=== PATIENT | female | born 1930 | race Caucasian/White ===

== ENCOUNTER 2017-03-11 22:38 | Emergency (ER) | payer MEDICARE, OTHER ==
[2017-03-11] MEDS ORDERED: ACETAMINOPHEN 325 MG TABLET PO ONE (23:05)
[2017-03-11] MEDS ORDERED: BACITRACIN 1 APP/PKT PKT TOPICAL ONE (23:05)
[2017-03-11 23:14] LABS: BASOPHILS 0.2 % (0.0-2.0); EOSINOPHILS 2.5 % (0.0-6.0); EOSINOPHILS# 0.4 X 10^3uL (0.0-0.4); HEMATOCRIT 44.5 % (36.0-48.0); HEMOGLOBIN 14.8 g/dL (12.0-16.0); LYMPHOCYTES 24.4 % (20.0-40.0); MEAN CELL VOLUME 97.6 fL (80.0-100.0); MEAN CORPUS. HGB CONCENTRATION 33.3 g/dL (32.0-36.0); MEAN CORPUSCULAR HEMOGLOBIN 32.5 pg (29.0-35.0); MEAN PLATELET VOLUME 8.3 fL (7.4-10.4); MONOCYTES 6.4 % (2.0-10.0); MONOCYTES# 1.1 X 10^3uL (0.2-1.0); NEUTROPHILS 66.5 % (54.0-75.0); NEUTROPHILS# 11.7 X 10^3uL (2.6-6.7); PLATELET COUNT 301 X 10^3uL (130-440); RED BLOOD COUNT 4.56 X 10^6uL (4.20-6.10); RED CELL DISTRIBUTION WIDTH 12.7 % (11.5-14.5); WHITE BLOOD COUNT 17.5 X 10^3uL (3.9-10.7)
[2017-03-11 23:17] LABS: A/G RATIO 1.3; ALBUMIN 4.7 g/dL (3.5-5.0); ALKALINE PHOSPHATASE 87 U/L (38-126); ALT 61 U/L (9-52); AST 83 U/L (14-36); BILIRUBIN, TOTAL 0.5 mg/dL (0.2-1.3); BLOOD UREA NITROGEN 16 mg/dL (7-17); CALCIUM 9.6 mg/dL (8.4-10.2); CHLORIDE 104 mmol/L (98-107); POTASSIUM 3.2 mmol/L (3.5-5.1); SODIUM 139 mmol/L (137-145); TOTAL PROTEIN 8.2 g/dL (6.3-8.2)
[2017-03-11 23:18] LABS: INR 0.9; PARTIAL THROMBOPLASTIN TIME 21 sec (24-38)
[2017-03-11] MEDS ORDERED: DIPH,PERTUSS(ACELL),TET VAC/PF 0.5 ML VIAL IM ONE (23:25)
[2017-03-11 23:26] LABS: GLUCOSE 209 mg/dL (70-100)
[2017-03-12] MEDS ORDERED: CEPHALEXIN MONOHYDRATE 250 MG CAPSULE PO ONE (01:25)
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
--- NOTE | 2017-03-12 11:00 | RADIOLOGY REPORT ---
Four views of the right lower leg demonstrate no displaced fracture or dislocation. Knee arthroplasty is noted and appears unremarkable. Limited views of the joints are otherwise unremarkable. IMPRESSION: No displaced injury is identified. If clinically indicated, further evaluation and/or follow-up may be of benefit. BRYANNAD
[2017-03-14 10:49] LABS: LYMPHOCYTES# 4.3 X 10^3uL (0.8-3.8)
== END 2017-03-12 02:45 | disposition home or self-care (01) ==
LOC: ER 22:38
DX: S06.890A Other specified intracranial injury without loss of consciousness, initial encounter (principal); S00.03XA Contusion of scalp, initial encounter; S01.101A Unspecified open wound of right eyelid and periocular area, initial encounter; S80.11XA Contusion of right lower leg, initial encounter; S81.821A Laceration with foreign body, right lower leg, initial encounter; S22.41XA Multiple fractures of ribs, right side, initial encounter for closed fracture; S22.42XA Multiple fractures of ribs, left side, initial encounter for closed fracture; S42.134A Nondisplaced fracture of coracoid process, right shoulder, initial encounter for closed fracture; M79.5 Residual foreign body in soft tissue; V48.5XXA Car driver injured in noncollision transport accident in traffic accident, initial encounter; Y92.413 State road as the place of occurrence of the external cause; Z74.3 Need for continuous supervision
CPT/HCPCS: 12011; 36415; 70450; 71260; 72125; 74177; 80053; 83605; 85025; 85610; 85730; 90471; 93005; 96360; 96361; 99285; A0425; A0429